=== PATIENT | male | born 1965 | race Caucasian/White ===

== ENCOUNTER 2017-07-16 21:24 | Emergency (ER) | payer OTHER ==
[~2017-07-16] VITALS: Ht 177.8 cm; Wt 87.0 kg
[2017-07-16 21:27] VITALS: BP 146/83
== END 2017-07-16 22:19 | disposition left against medical advice (07) ==
LOC: ED 22:13
DX: Z53.21 Procedure and treatment not carried out due to patient leaving prior to being seen by health care provider (principal)